=== PATIENT | male | born 1935 | race Two or more races ===

== ENCOUNTER 2017-10-25 19:55 | Inpatient (IN) | payer MEDICARE, MEDICAID ==
[~2017-10-25] VITALS: Ht 170.2 cm; Wt 90.7 kg
[~2017-10-25 19:55] MED LIST: ACTOS30 MG PO; AMARYL4 MG PO; CRESTOR10 MG PO; DIOVAN HCT 1601 EACH PO; GLUCOPHAGE500 MG PO; HYTRIN5 MG PO; JANUVIA100 MG PO; LOTREL 5-20 MG1 EACH PO; MOBIC7.5 MG PO; NEXIUM40 MG PO; PLAVIX75 MG PO
[2017-10-25 20:30] VITALS: BP 157/97
[2017-10-25] MEDS ORDERED: Acetaminophen 650 MG SUPP RECTAL ONE (20:45)
[2017-10-25 21:05] LABS: ANION GAP 9 mmol/L (5-15); BLOOD UREA NITROGEN 22 mg/dL (7-18); CALCIUM 9.5 MG/DL (8.5-10.1); CARBON DIOXIDE 27 MMOL/L (21-32); CHLORIDE 100 MMOL/L (98-107); CREATININE 1.4 MG/DL (0.55-1.30); POTASSIUM 4.7 MMOL/L (3.5-5.1); SODIUM 136 MMOL/L (136-145)
[2017-10-25 21:06] LABS: BASOPHILS % (AUTO) 0.9 % (0.0-2.0); EOSINOPHILS % (AUTO) 0.5 % (0.0-3.0); HEMATOCRIT 49.2 % (42.0-52.0); HEMOGLOBIN 16.6 G/DL (14.2-18.0); LYMPHOCYTES % (AUTO) 11.3 % (20.0-45.0); MEAN CORPUSCULAR VOLUME 90 FL (80-99); MONOCYTES % (AUTO) 6.2 % (1.0-10.0); NEUTROPHILS % (AUTO) 81.1 % (45.0-75.0); PLATELET COUNT 228 K/UL (150-450); RED BLOOD COUNT 5.45 M/UL (4.70-6.10); RED CELL DISTRIBUTION WIDTH 11.8 % (11.6-14.8)
[2017-10-25 21:19] LABS: ALANINE AMINOTRANSFERASE 23 U/L (12-78); ALBUMIN 3.7 G/DL (3.4-5.0); ALBUMIN/GLOBULIN RATIO 0.8 (1.0-2.7); ALKALINE PHOSPHATASE 78 U/L (46-116); ASPARTATE AMINO TRANSFERASE 24 U/L (15-37); BILIRUBIN,TOTAL 0.5 MG/DL (0.2-1.0); CKMB 0.6 NG/ML (0.0-3.6); CREATINE KINASE 98 U/L (26-308)
[2017-10-25 21:32] LABS: APPEARANCE,URINE CLEAR; BILIRUBIN, URINE NEGATIVE (NEGATIVE); COLOR,URINE PALE YELLOW; GLUCOSE, URINE (UA) NEGATIVE (NEGATIVE); KETONES,URINE NEGATIVE (NEGATIVE); LEUKOCYTE ESTERASE ,URINE 3+ (NEGATIVE); NITRITE,URINE NEGATIVE (NEGATIVE); PH,URINE 6 (4.5-8.0); PROTEIN,URINE 3+ (NEGATIVE); UROBILINOGEN,URINE NORMAL MG/DL (0.0-1.0)
[2017-10-25] MEDS ORDERED: Metoprolol 5mg/5ml Inj IVP ONE (22:15)
[2017-10-25] MEDS ORDERED: cefTRIAXone 1 GM in NS 55 ML IVPB ONE (22:15)
[2017-10-25] MEDS ORDERED: Azithromycin 500 MG in NS 275 ML IV ONE (22:15)
--- NOTE | 2017-10-25 22:19 | Emergency Room Report ---
History of Present Illness General Chief Complaint: Altered Level of Consciousness Source: Family Member, EMS Present Illness HPI 82-year-old male presents ED for evaluation. Patient brought in by family. Patient had fever 1 day. Tachycardic. History of A. fib. Patient has dementia and is unable to provide any additional history at this time. Family at bedside states that patient has increased urinary frequency. No signs of distress upon arrival. No other aggravating relieving factors. 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, R-sided weakness Review of Systems All Other Systems: limited Physical Exam Vital Signs Date Time Temp Pulse Resp B/P (MAP) Pulse Ox O2 Delivery O2 Flow Rate FiO2 10/25/17 19:57 100.0 126 16 157/97 95 Room Air 100.0 Sp02 EP Interpretation: reviewed, normal General Appearance: no apparent distress, non-toxic, other - dementia Head: normocephalic ENT: normal ENT inspection Neck: normal inspection Respiratory: chest non-tender, lungs clear, normal breath sounds, speaking full sentences Cardiovascular #1: tachycardia Gastrointestinal: normal bowel sounds, non tender, soft, non-distended, no guarding, no rebound Rectal: deferred Genitourinary: no CVA tenderness Musculoskeletal: normal inspection Neurologic: other - dementia Psychiatric: other - dementia Skin: normal inspection Lymphatic: normal inspection Medical Decision Making Diagnostic Impression: Primary Impression: UTI (urinary tract infection) Qualified Codes: N39.0 - Urinary tract infection, site not specified Additional Impressions: Renal insufficiency Dementia Qualified Codes: F03.90 - Unspecified dementia without behavioral disturbance Atrial fibrillation with RVR ER Course Hospital Course 82-year-old M presents ED complaining of fever, tachycardia Differential diagnoses include: FL/unstable angina, contusion, muscle strain, PTX, rib fracture, pneumonia, Clinical course Patient placed on stretcher. on potline monitor which shows A. fib with RVR. lopressor given with cardioversion. After initial history and physical I ordered labs, EKG, chest x-ray labs reviewed- noted leukocytosis, hemoglobin/hematocrit ok, BUN/Cr elevated, trop negative, BNP elevated, UA + bacteria Chest x-ray- CHF/cardiomegaly EKG - afib with RVR no acute ischemic changes interpreted by me abx given. Case discussed with Dr. Jon and he agreed to accept the patient to his service for further care and support I. I feel this is a highly complex case requiring extensive working including EKG/Rhythm strip, Xray/CT/US, Blood/urine lab work, repeat exams while in ED, and administration of strong opiates/narcotics for pain control, admission to hospital or close patient follow up. Diagnosis - afib with RVR, fever, UTI, renal insufficiency, dementia admitted to telemetry in serious condition Labs Test 10/25/17 20:20 10/25/17 21:00 White Blood Count 17.0 K/UL (4.8-10.8) Red Blood Count 5.45 M/UL (4.70-6.10) Hemoglobin 16.6 G/DL (14.2-18.0) Hematocrit 49.2 % (42.0-52.0) Mean Corpuscular Volume 90 FL (80-99) Mean Corpuscular Hemoglobin 30.6 PG (27.0-31.0) Mean Corpuscular Hemoglobin Concent 33.8 G/DL (32.0-36.0) Red Cell Distribution Width 11.8 % (11.6-14.8) Platelet Count 228 K/UL (150-450) Mean Platelet Volume 6.9 FL (6.5-10.1) Neutrophils (%) (Auto) 81.1 % (45.0-75.0) Lymphocytes (%) (Auto) 11.3 % (20.0-45.0) Monocytes (%) (Auto) 6.2 % (1.0-10.0) Eosinophils (%) (Auto) 0.5 % (0.0-3.0) Basophils (%) (Auto) 0.9 % (0.0-2.0) Sodium Level 136 MMOL/L (136-145) Potassium Level 4.7 MMOL/L (3.5-5.1) Chloride Level 100 MMOL/L (98-107) Carbon Dioxide Level 27 MMOL/L (21-32) Anion Gap 9 mmol/L (5-15) Blood Urea Nitrogen 22 mg/dL (7-18) Creatinine 1.4 MG/DL (0.55-1.30) Estimat Glomerular Filtration Rate mL/min (>60) Glucose Level 217 MG/DL (74-106) Lactic Acid Level 1.90 mmol/L (0.4-2.0) Calcium Level 9.5 MG/DL (8.5-10.1) Total Bilirubin 0.5 MG/DL (0.2-1.0) Aspartate Amino Transf (AST/SGOT) 24 U/L (15-37) Alanine Aminotransferase (ALT/SGPT) 23 U/L (12-78) Alkaline Phosphatase 78 U/L (46-116) Total Creatine Kinase 98 U/L (26-308) Creatine Kinase MB 0.6 NG/ML (0.0-3.6) Creatine Kinase MB Relative Index 0.6 Troponin I 0.008 ng/mL (0.000-0.056) Pro-B-Type Natriuretic Peptide 1339 pg/mL (0-125) Total Protein 8.6 G/DL (6.4-8.2) Albumin 3.7 G/DL (3.4-5.0) Globulin 4.9 g/dL Albumin/Globulin Ratio 0.8 (1.0-2.7) Urine Color Pale yellow Urine Appearance Clear Urine pH 6 (4.5-8.0) Urine Specific [place] 1.005 (1.005-1.035) Urine Protein 3+ (NEGATIVE) Urine Glucose (UA) Negative (NEGATIVE) Urine Ketones Negative (NEGATIVE) Urine Occult Blood 3+ (NEGATIVE) Urine Nitrite Negative (NEGATIVE) Urine Bilirubin Negative (NEGATIVE) Urine Urobilinogen Normal MG/DL (0.0-1.0) Urine Leukocyte Esterase 3+ (NEGATIVE) Urine RBC 10-15 /HPF (0 - 0) Urine WBC 5-10 /HPF (0 - 0) Urine Squamous Epithelial Cells None /LPF (NONE/OCC) Urine Bacteria Few /HPF (NONE) EKG Diagnostic Results Rate: tachycardiac Rhythm: other - afib ST Segments: no acute changes ASA given to the pt in ED: No Rhythm Strip Diag. Results EP Interpretation: yes Rhythm: no PVC's, no ectopy Chest X-Ray Diagnostic Results Chest X-Ray Diagnostic Results : Chest X-Ray Ordered: Yes # of Views/Limited/Complete: 1 View Indication: Other - ams EP Interpretation: Yes Interpretation: no consolidation, no pneumothorax, other - cardiomegaly. pulmonary congestion Impression: Other - chf Electronically Signed by: Electronically signed by Yosi Srinivasan MD Last Vital Signs Date Time Temp Pulse Resp B/P (MAP) Pulse Ox O2 Delivery O2 Flow Rate FiO2 10/25/17 20:57 103.4 10/25/17 19:57 126 16 157/97 95 Room Air Status: improved Disposition: ADMITTED INPATIENT Condition: Serious Referrals: NON PHYSICIAN (PCP) Yosi Srinivasan MD Oct 25, 2017 22:19
[2017-10-25 23:19] VITALS: BP 109/69
[2017-10-26] VITALS (7 sets, daily range): BP systolic 104–163; BP diastolic 62–93
[2017-10-26] MEDS ORDERED: UNOBMED (01:43)
[2017-10-26 06:14] LABS: BASOPHILS % (AUTO) 0.7 % (0.0-2.0); EOSINOPHILS % (AUTO) 0.7 % (0.0-3.0); HEMATOCRIT 43.9 % (42.0-52.0); HEMOGLOBIN 15.1 G/DL (14.2-18.0); LYMPHOCYTES % (AUTO) 17.6 % (20.0-45.0); MEAN CORPUSCULAR VOLUME 92 FL (80-99); MONOCYTES % (AUTO) 9.1 % (1.0-10.0); NEUTROPHILS % (AUTO) 71.9 % (45.0-75.0); PLATELET COUNT 226 K/UL (150-450); RED BLOOD COUNT 4.75 M/UL (4.70-6.10); RED CELL DISTRIBUTION WIDTH 11.7 % (11.6-14.8); WHITE BLOOD COUNT 14.2 K/UL (4.8-10.8)
[2017-10-26] MEDS: NovoLOG Insulin Flexpen SUBQ SCH ×4 (06:30→21:32)
[2017-10-26] MEDS: metroNIDAZOLE 500mg tab ORAL SCH ×3 (06:35→21:31)
[2017-10-26 07:06] LABS: ALANINE AMINOTRANSFERASE 19 U/L (12-78); ALBUMIN/GLOBULIN RATIO 0.7 (1.0-2.7); ALKALINE PHOSPHATASE 57 U/L (46-116); ANION GAP 9 mmol/L (5-15); ASPARTATE AMINO TRANSFERASE 13 U/L (15-37); BILIRUBIN,TOTAL 0.4 MG/DL (0.2-1.0); BLOOD UREA NITROGEN 23 mg/dL (7-18); CALCIUM 8.5 MG/DL (8.5-10.1); CARBON DIOXIDE 26 MMOL/L (21-32); CHLORIDE 105 MMOL/L (98-107); CREATININE 1.3 MG/DL (0.55-1.30); POTASSIUM 3.7 MMOL/L (3.5-5.1); SODIUM 140 MMOL/L (136-145)
[2017-10-26] MEDS ORDERED: Xarelto 15mg tab ORAL SCH (09:00)
[2017-10-26] MEDS ORDERED: Metoprolol Succinate XL 50mg tab ORAL SCH (09:00)
[2017-10-26] MEDS: Metoprolol Tartrate 50mg tab ORAL SCH ×2 (09:17→21:31)
[2017-10-26] MEDS: cefTRIAXone 1 GM in D5W 55 ML IVPB SCH (09:18)
[2017-10-26] MEDS ORDERED: URECHOLINE50 MG ORAL (10:30)
[2017-10-26] MEDS ORDERED: ESCITALOPRAM OX20 MG ORAL (10:30)
[2017-10-26] MEDS ORDERED: COLACE100 MG ORAL (10:30)
[2017-10-26] MEDS ORDERED: TAMSULOSIN HCL0.4 MG ORAL (10:30)
[2017-10-26] MEDS ORDERED: XARELTO10 MG ORAL (10:30)
[2017-10-26] MEDS ORDERED: BYSTOLIC10 MG ORAL (10:30)
[2017-10-26] MEDS ORDERED: TRIBENZOR 40-11 EAC1 ORAL (10:30)
--- NOTE | 2017-10-26 11:43 | Diagnostic Imaging Report ---
Indication: Dyspnea Comparison: None A single view chest radiograph was obtained. Findings: There is enlargement of the cardiac silhouette with pulmonary vascular redistribution and prominence, hazy vessel margins and the suggestion of interstitial edema consistent with CHF. Bones are osteopenic. IMPRESSION: Suspected CHF/interstitial edema
[2017-10-26] MEDS: Docusate 250mg cap ORAL SCH (18:12)
[2017-10-26] MEDS: metFORMIN 500mg tab ORAL SCH (18:12)
[2017-10-26] MEDS: Bethanechol 25mg Tab ORAL SCH (18:14)
[2017-10-26] MEDS: Tamsulosin 0.4mg cap ORAL SCH (21:30)
--- NOTE | 2017-10-26 21:59 | Cardiology Progress Note ---
Assessment/Plan Assessment/Plan UTI with elevated WBC atrial flutter chronic vascular dementia continue abx stop IVF PT f/u labs Subjective Subjective the patient feels better, his oral intake is good no fever today urination is better Objective Last 24 Hour Vital Signs Date Time Temp Pulse Resp B/P (MAP) Pulse Ox O2 Delivery O2 Flow Rate FiO2 10/26/17 21:31 70 163/93 10/26/17 20:55 97.0 70 20 163/93 (116) 98 97.0 10/26/17 20:00 97.7 67 18 143/83 (103) 97 97.7 10/26/17 18:12 66 143/83 10/26/17 16:00 66 10/26/17 15:21 97.7 67 18 143/83 (103) 97 97.7 10/26/17 12:00 68 10/26/17 12:00 97.3 66 20 139/77 (97) 96 97.3 10/26/17 09:17 76 122/68 10/26/17 09:00 Room Air 10/26/17 08:00 68 10/26/17 08:00 97.5 76 20 122/68 (86) 98 97.5 10/26/17 07:01 Room Air 10/26/17 04:00 97.9 67 19 104/62 (76) 96 97.9 10/26/17 02:15 98.0 86 20 110/64 97 Room Air 208.4 10/26/17 02:15 98.0 86 20 110/64 97 Room Air 98.0 10/25/17 23:19 97.5 117 16 109/69 96 Room Air 97.5 10/25/17 22:22 117 112/69 General Appearance: no apparent distress EENT: PERRL/EOMI Neck: supple Rhythm: Afib Cardiovascular: tachycardia Respiratory/Chest: rhonchi - bilaterally Abdomen: hypoactive bowel sounds Extremities: trace edema Neurologic: other - right sided weakness Intake and Output 10/25/17 10/26/17 19:00 07:00 # Voids 2 Laboratory Tests Test 10/26/17 05:30 White Blood Count 14.2 K/UL (4.8-10.8) H Red Blood Count 4.75 M/UL (4.70-6.10) Hemoglobin 15.1 G/DL (14.2-18.0) Hematocrit 43.9 % (42.0-52.0) Mean Corpuscular Volume 92 FL (80-99) Mean Corpuscular Hemoglobin 31.9 PG (27.0-31.0) H Mean Corpuscular Hemoglobin Concent 34.5 G/DL (32.0-36.0) Red Cell Distribution Width 11.7 % (11.6-14.8) Platelet Count 226 K/UL (150-450) Mean Platelet Volume 7.3 FL (6.5-10.1) Neutrophils (%) (Auto) 71.9 % (45.0-75.0) Lymphocytes (%) (Auto) 17.6 % (20.0-45.0) L Monocytes (%) (Auto) 9.1 % (1.0-10.0) Eosinophils (%) (Auto) 0.7 % (0.0-3.0) Basophils (%) (Auto) 0.7 % (0.0-2.0) Sodium Level 140 MMOL/L (136-145) Potassium Level 3.7 MMOL/L (3.5-5.1) Chloride Level 105 MMOL/L (98-107) Carbon Dioxide Level 26 MMOL/L (21-32) Anion Gap 9 mmol/L (5-15) Blood Urea Nitrogen 23 mg/dL (7-18) H Creatinine 1.3 MG/DL (0.55-1.30) Estimat Glomerular Filtration Rate mL/min (>60) Glucose Level 87 MG/DL (74-106) # Calcium Level 8.5 MG/DL (8.5-10.1) Total Bilirubin 0.4 MG/DL (0.2-1.0) Aspartate Amino Transf (AST/SGOT) 13 U/L (15-37) L Alanine Aminotransferase (ALT/SGPT) 19 U/L (12-78) Alkaline Phosphatase 57 U/L (46-116) Total Protein 7.3 G/DL (6.4-8.2) Albumin 3.0 G/DL (3.4-5.0) L Globulin 4.3 g/dL Albumin/Globulin Ratio 0.7 (1.0-2.7) L Janine Jon MD Oct 26, 2017 21:59
[2017-10-26] MEDS ORDERED: Lidocaine 1% MPF 10mg/ml 5ml IM SCH (22:00)
--- NOTE | 2017-10-26 22:29 | Cardiology Progress Note ---
Assessment/Plan Assessment/Plan UTI with elevated WBC atrial flutter chronic vascular dementia continue abx stop IVF PT f/u labs Subjective Subjective [id number] Objective Last 24 Hour Vital Signs Date Time Temp Pulse Resp B/P (MAP) Pulse Ox O2 Delivery O2 Flow Rate FiO2 10/26/17 21:31 70 163/93 10/26/17 20:55 97.0 70 20 163/93 (116) 98 97.0 10/26/17 20:00 97.7 67 18 143/83 (103) 97 97.7 10/26/17 18:12 66 143/83 10/26/17 16:00 66 10/26/17 15:21 97.7 67 18 143/83 (103) 97 97.7 10/26/17 12:00 68 10/26/17 12:00 97.3 66 20 139/77 (97) 96 97.3 10/26/17 09:17 76 122/68 10/26/17 09:00 Room Air 10/26/17 08:00 68 10/26/17 08:00 97.5 76 20 122/68 (86) 98 97.5 10/26/17 07:01 Room Air 10/26/17 04:00 97.9 67 19 104/62 (76) 96 97.9 10/26/17 02:15 98.0 86 20 110/64 97 Room Air 208.4 10/26/17 02:15 98.0 86 20 110/64 97 Room Air 98.0 10/25/17 23:19 97.5 117 16 109/69 96 Room Air 97.5 Intake and Output 10/25/17 10/26/17 19:00 07:00 # Voids 2 Laboratory Tests Test 10/26/17 05:30 White Blood Count 14.2 K/UL (4.8-10.8) H Red Blood Count 4.75 M/UL (4.70-6.10) Hemoglobin 15.1 G/DL (14.2-18.0) Hematocrit 43.9 % (42.0-52.0) Mean Corpuscular Volume 92 FL (80-99) Mean Corpuscular Hemoglobin 31.9 PG (27.0-31.0) H Mean Corpuscular Hemoglobin Concent 34.5 G/DL (32.0-36.0) Red Cell Distribution Width 11.7 % (11.6-14.8) Platelet Count 226 K/UL (150-450) Mean Platelet Volume 7.3 FL (6.5-10.1) Neutrophils (%) (Auto) 71.9 % (45.0-75.0) Lymphocytes (%) (Auto) 17.6 % (20.0-45.0) L Monocytes (%) (Auto) 9.1 % (1.0-10.0) Eosinophils (%) (Auto) 0.7 % (0.0-3.0) Basophils (%) (Auto) 0.7 % (0.0-2.0) Sodium Level 140 MMOL/L (136-145) Potassium Level 3.7 MMOL/L (3.5-5.1) Chloride Level 105 MMOL/L (98-107) Carbon Dioxide Level 26 MMOL/L (21-32) Anion Gap 9 mmol/L (5-15) Blood Urea Nitrogen 23 mg/dL (7-18) H Creatinine 1.3 MG/DL (0.55-1.30) Estimat Glomerular Filtration Rate mL/min (>60) Glucose Level 87 MG/DL (74-106) # Calcium Level 8.5 MG/DL (8.5-10.1) Total Bilirubin 0.4 MG/DL (0.2-1.0) Aspartate Amino Transf (AST/SGOT) 13 U/L (15-37) L Alanine Aminotransferase (ALT/SGPT) 19 U/L (12-78) Alkaline Phosphatase 57 U/L (46-116) Total Protein 7.3 G/DL (6.4-8.2) Albumin 3.0 G/DL (3.4-5.0) L Globulin 4.3 g/dL Albumin/Globulin Ratio 0.7 (1.0-2.7) L Janine Jon MD Oct 26, 2017 22:29
[2017-10-27] VITALS: BP 129/65
--- NOTE | 2017-10-27 01:32 | History and Physical Report ---
DATE OF ADMISSION: 10/25/2017 IDENTIFYING DATA: The patient is an 82-year-old gentleman. REASON FOR ADMISSION: Urinary tract infection. HISTORY OF PRESENT ILLNESS: Taken from the patient's . The patient is unfortunately has vascular dementia due to his debilitating stroke. He suffered approximately a year ago. So, he lives at home with his who takes care of him and yesterday he became altered and then he was complaining of generalized body aches. So, he was brought to the emergency department where he was found to be febrile and he had some mild chills. He also has frequent urination. He did have history of urinary tract infection in the past. PAST MEDICAL HISTORY: In addition to debilitating stroke significant for diabetes, hypertension, atrial fibrillation, benign prostatic hypertrophy, gastroparesis, and arthritis. SURGICAL HISTORY: He underwent in the past cholecystectomy and he also had intervention during his stroke with intracerebral thrombolytics. ALLERGIES: Not reported. MEDICATIONS: His home medications include Xarelto, Januvia, Bystolic, Exforge 25, Crestor, Flomax, , and escitalopram. HABITS: Severe remote history of drinking and smoking. Social dependent, lives with his . REVIEW OF SYSTEMS: The patient is unstable on his gait. He denies any chest pain or shortness of breath today. No cough. No vomiting. No diarrhea or melena. No abdominal pain. He has right groin pain, which is chronic. PHYSICAL EXAMINATION: GENERAL: This is elderly gentleman. He was in the emergency department and so he was resting in bed. VITAL SIGNS: His temperature was 103.4 degrees, his heart rate was 130, his blood pressure was 160/90, and his oxygen saturation 95%. HEENT: 0He has mild right-sided facial droop. His neck was supple. PERRLA. EOMI. NECK: Neck veins are not distended. His carotid upstroke was brisk. LUNGS: Clear to auscultation bilaterally. HEART: Irregular and rapid. ABDOMEN: Soft, slightly distended. Bowel sounds are present. No rebound. EXTREMITIES: Lower extremity trace edema. NEUROLOGICAL: He has left-sided weakness, especially the arm. LABORATORY AND DIAGNOSTIC DATA: His ECG showed atrial fibrillation with incomplete left bundle-branch block. His laboratory data revealed a white count of 17,000, hemoglobin 16.6, and platelets 228. Chemistry was unremarkable with a BUN 23 and albumin 3. Chest x-ray did not show any infiltrates and his urinalysis was positive for wbc's and rbc's, leukocyte esterase, occult blood and urine protein. IMPRESSION AND RECOMMENDATION: The patient is suffering from urinary tract infection. He is a diabetic, so increased risk for urosepsis. He is going to be admitted for monitoring IV hydration, control his heart rate, control his temperature and intravenous antibiotics administration. Janine Jon M.D. DR: MARYAM JOB#: [id number] CC:
[2017-10-27 04:00] VITALS: BP 139/88
[2017-10-27] MEDS: sitaGLIPtin 50mg tab ORAL SCH (07:15)
[2017-10-27] MEDS: metroNIDAZOLE 500mg tab ORAL SCH ×3 (07:15→22:05)
[2017-10-27] MEDS: metFORMIN 500mg tab ORAL SCH ×3 (07:15→16:45)
[2017-10-27] MEDS: NovoLOG Insulin Flexpen SUBQ SCH ×4 (07:16→22:15)
[2017-10-27 07:54] LABS: BASOPHILS % (AUTO) 0.7 % (0.0-2.0); EOSINOPHILS % (AUTO) 1.7 % (0.0-3.0); HEMATOCRIT 46.3 % (42.0-52.0); HEMOGLOBIN 15.8 G/DL (14.2-18.0); LYMPHOCYTES % (AUTO) 19.4 % (20.0-45.0); MEAN CORPUSCULAR VOLUME 91 FL (80-99); MONOCYTES % (AUTO) 8.2 % (1.0-10.0); NEUTROPHILS % (AUTO) 69.9 % (45.0-75.0); PLATELET COUNT 214 K/UL (150-450); RED BLOOD COUNT 5.09 M/UL (4.70-6.10); RED CELL DISTRIBUTION WIDTH 11.4 % (11.6-14.8); WHITE BLOOD COUNT 10.6 K/UL (4.8-10.8)
[2017-10-27 08:00] VITALS: BP 139/103
[2017-10-27 08:26] LABS: ANION GAP 7 mmol/L (5-15); BLOOD UREA NITROGEN 17 mg/dL (7-18); CALCIUM 8.9 MG/DL (8.5-10.1); CARBON DIOXIDE 28 MMOL/L (21-32); CHLORIDE 104 MMOL/L (98-107); CREATININE 1.1 MG/DL (0.55-1.30); POTASSIUM 3.7 MMOL/L (3.5-5.1); SODIUM 139 MMOL/L (136-145)
[2017-10-27] MEDS: Docusate 250mg cap ORAL SCH (09:28)
[2017-10-27] MEDS: Metoprolol Tartrate 50mg tab ORAL SCH ×2 (09:28→22:06)
[2017-10-27] MEDS: Xarelto 10mg tab ORAL SCH (09:28)
[2017-10-27] MEDS: cefTRIAXone 1 GM in D5W 55 ML IVPB SCH (09:28)
[2017-10-27] MEDS: Bethanechol 25mg Tab ORAL SCH ×2 (09:29→17:13)
[2017-10-27 12:12] VITALS: BP 138/86
[2017-10-27 16:00] VITALS: BP 124/75
[2017-10-27 20:00] VITALS: BP 144/81
[2017-10-27] MEDS: Tamsulosin 0.4mg cap ORAL SCH (22:06)
--- NOTE | 2017-10-27 22:41 | Cardiology Progress Note ---
Assessment/Plan Assessment/Plan UTI with elevated WBC atrial flutter chronic vascular dementia continue abx stop IVF PT f/u labs Subjective Subjective the patient is doing better, no shivering, no fever, is eating well family at the bedside walked a little bit Objective Last 24 Hour Vital Signs Date Time Temp Pulse Resp B/P (MAP) Pulse Ox O2 Delivery O2 Flow Rate FiO2 10/27/17 22:06 66 144/81 10/27/17 16:00 97.8 77 20 124/75 (91) 97 97.8 77 10/27/17 16:00 93 10/27/17 12:12 97.5 78 22 138/86 (103) 94 97.5 10/27/17 12:00 70 10/27/17 09:29 95 139/103 10/27/17 09:28 95 139/103 10/27/17 09:00 Room Air 10/27/17 08:00 77 10/27/17 08:00 97.9 95 22 139/103 (115) 96 97.9 10/27/17 04:00 68 10/27/17 04:00 98.2 67 20 139/88 (105) 96 98.2 10/27/17 00:00 98.2 83 20 129/65 (86) 96 98.2 10/27/17 00:00 72 General Appearance: no apparent distress, other - confused EENT: PERRL/EOMI Neck: no JVD Rhythm: Afib Cardiovascular: tachycardia Respiratory/Chest: lungs clear Abdomen: soft Extremities: trace edema Intake and Output 10/26/17 10/27/17 19:00 07:00 Intake Total 1065 ml 250 ml Balance 1065 ml 250 ml Intake Oral 360 ml IV Total 705 ml Other 250 ml # Voids 2 4 # Bowel Movements 1 Laboratory Tests Test 10/27/17 07:00 White Blood Count 10.6 K/UL (4.8-10.8) Red Blood Count 5.09 M/UL (4.70-6.10) Hemoglobin 15.8 G/DL (14.2-18.0) Hematocrit 46.3 % (42.0-52.0) Mean Corpuscular Volume 91 FL (80-99) Mean Corpuscular Hemoglobin 31.1 PG (27.0-31.0) H Mean Corpuscular Hemoglobin Concent 34.2 G/DL (32.0-36.0) Red Cell Distribution Width 11.4 % (11.6-14.8) L Platelet Count 214 K/UL (150-450) Mean Platelet Volume 7.1 FL (6.5-10.1) Neutrophils (%) (Auto) 69.9 % (45.0-75.0) Lymphocytes (%) (Auto) 19.4 % (20.0-45.0) L Monocytes (%) (Auto) 8.2 % (1.0-10.0) Eosinophils (%) (Auto) 1.7 % (0.0-3.0) Basophils (%) (Auto) 0.7 % (0.0-2.0) Sodium Level 139 MMOL/L (136-145) Potassium Level 3.7 MMOL/L (3.5-5.1) Chloride Level 104 MMOL/L (98-107) Carbon Dioxide Level 28 MMOL/L (21-32) Anion Gap 7 mmol/L (5-15) Blood Urea Nitrogen 17 mg/dL (7-18) Creatinine 1.1 MG/DL (0.55-1.30) Estimat Glomerular Filtration Rate mL/min (>60) Glucose Level 124 MG/DL (74-106) H Calcium Level 8.9 MG/DL (8.5-10.1) Microbiology Date/Time Source Procedure Growth Status 10/25/17 20:20 Blood Blood Culture - Preliminary NO GROWTH AFTER 24 HOURS Resulted 10/25/17 20:05 Blood Blood Culture - Preliminary NO GROWTH AFTER 24 HOURS Resulted Janine Jon MD Oct 27, 2017 22:41
[2017-10-28] VITALS: BP 135/79
[2017-10-28 04:15] VITALS: BP 158/73
[2017-10-28] MEDS: sitaGLIPtin 50mg tab ORAL SCH (05:59)
[2017-10-28] MEDS: metroNIDAZOLE 500mg tab ORAL SCH ×3 (05:59→22:11)
[2017-10-28] MEDS: metFORMIN 500mg tab ORAL SCH ×3 (05:59→16:30)
[2017-10-28] MEDS: NovoLOG Insulin Flexpen SUBQ SCH ×4 (06:01→20:46)
[2017-10-28 08:00] VITALS: BP 135/76
[2017-10-28] MEDS: Xarelto 10mg tab ORAL SCH (09:09)
[2017-10-28] MEDS: Docusate 250mg cap ORAL SCH (09:09)
[2017-10-28] MEDS: cefTRIAXone 1 GM in D5W 55 ML IVPB SCH (09:10)
[2017-10-28] MEDS: Metoprolol Tartrate 50mg tab ORAL SCH ×2 (09:12→20:44)
[2017-10-28] MEDS: Bethanechol 25mg Tab ORAL SCH ×2 (09:16→17:53)
--- NOTE | 2017-10-28 11:24 | Cardiology Progress Note ---
Assessment/Plan Assessment/Plan UTI with elevated WBC atrial flutter chronic vascular dementi seems to be doign ok on iv abx dc pl;an for monday per dr sarkar tele atrial flutter hemodynamically stable Subjective Cardiovascular: Reports: no symptoms Respiratory: Reports: no symptoms Gastrointestinal/Abdominal: Reports: no symptoms Genitourinary: Reports: no symptoms Objective Last 24 Hour Vital Signs Date Time Temp Pulse Resp B/P (MAP) Pulse Ox O2 Delivery O2 Flow Rate FiO2 10/28/17 09:17 92 135/76 10/28/17 09:12 92 135/76 10/28/17 08:00 97.8 92 17 135/76 (95) 94 97.8 10/28/17 08:00 67 10/28/17 04:39 64 10/28/17 04:15 97.5 66 21 158/73 (101) 96 97.5 10/28/17 00:00 97.7 67 20 135/79 (97) 95 97.7 10/28/17 00:00 67 10/27/17 22:06 66 144/81 10/27/17 21:00 Room Air 10/27/17 20:00 68 10/27/17 20:00 97.7 66 19 144/81 (102) 97 97.7 66 10/27/17 16:00 97.8 77 20 124/75 (91) 97 97.8 77 10/27/17 16:00 93 10/27/17 12:12 97.5 78 22 138/86 (103) 94 97.5 10/27/17 12:00 70 General Appearance: no apparent distress, alert Cardiovascular: irregularly irregular Respiratory/Chest: lungs clear Abdomen: normal bowel sounds, non tender, soft Extremities: no swelling Intake and Output 10/27/17 10/28/17 19:00 07:00 Intake Total 55 ml 470 ml Balance 55 ml 470 ml Intake Oral 320 ml IV Total 55 ml 150 ml # Voids 3 3 Microbiology Date/Time Source Procedure Growth Status 10/25/17 20:20 Blood Blood Culture - Preliminary NO GROWTH AFTER 48 HOURS Resulted 10/25/17 20:05 Blood Blood Culture - Preliminary NO GROWTH AFTER 48 HOURS Resulted Arron Lyles MD Oct 28, 2017 11:24
[2017-10-28 12:00] VITALS: BP 139/77
--- NOTE | 2017-10-28 14:35 | Physician Query ---
--------- THIS DOCUMENT IS A PERMANENT PART OF THE MEDICAL RECORD --------- PLEASE COMPLETE THE DOCUMENT BEFORE SIGNING Dear Dr. Jon Date: 2017 Marketing Representative/CDS Name: Dara hidalgo Marketing Representative/CDS Phone No.:[phone] Exercise your independent professional judgment when responding to query. Question asked do not imply a particular answer is desired/expected Clinical Documentation States: Patient is admitted with UTI. "Urosepsis" documented in Assessment. Clinical Findings Show: WBC: 17.0, Temperature: 103.4, HR: 126 Antibiotics : Ceftriaxone Please clarify the diagnosis for above findings: [ ] Sepsis [ ] Sepsis with organ dysfunction [ ] SIRS [ ] SIRS with organ dysfunction [ ] Septic Shock [ ] Other: [ ] Clinically Undeterminable Present on admission? [] Yes [] No [] Clinically undeterminable Criteria for Sepsis* Sepsis: Presence of 1 or more criteria in this row.. Positive cultures (but not required) or WBCs present in otherwise sterile fluid: blood, urine, sputum, CSF , etc.? Prescribed anti-infective therapy: antibiotic, antifungal, and other? Documentation of pneumonia: positive x-ray or clinical presentation? Perforated viscus: perforation of a hollow organ, e.g. bowel? SIRS: Presence of > 2 criteria in this row Temperature: > 100.4 F. or < 96.8 F. Heart rate: > 90 bpm Respiratory rate: > 20/min. WBC count: > 12,000/mm2 < 4,000/mm2 > 10% bands MTDD
[2017-10-28 16:00] VITALS: BP 138/81
[2017-10-28 20:00] VITALS: BP 116/50
[2017-10-28] MEDS: Tamsulosin 0.4mg cap ORAL SCH (20:44)
[2017-10-29] VITALS (7 sets, daily range): BP systolic 136–155; BP diastolic 74–99
[2017-10-29] MEDS: metroNIDAZOLE 500mg tab ORAL SCH ×3 (05:52→21:02)
[2017-10-29] MEDS: sitaGLIPtin 50mg tab ORAL SCH (05:52)
[2017-10-29] MEDS: metFORMIN 500mg tab ORAL SCH ×3 (05:52→17:10)
[2017-10-29] MEDS: NovoLOG Insulin Flexpen SUBQ SCH ×4 (05:53→20:51)
[2017-10-29] MEDS: Xarelto 10mg tab ORAL SCH (08:18)
[2017-10-29] MEDS: Docusate 250mg cap ORAL SCH (08:18)
[2017-10-29] MEDS: cefTRIAXone 1 GM in D5W 55 ML IVPB SCH (08:18)
[2017-10-29] MEDS: Bethanechol 25mg Tab ORAL SCH ×2 (08:18→17:09)
[2017-10-29] MEDS: Metoprolol Tartrate 50mg tab ORAL SCH ×2 (08:19→20:49)
--- NOTE | 2017-10-29 13:41 | Cardiology Progress Note ---
Assessment/Plan Assessment/Plan UTI with elevated WBC atrial flutter chronic vascular dementi seems to be doign ok on iv abx dc plan for monday per dr sarkar tele atrial flutter hemodynamically stable Subjective Cardiovascular: Denies: chest pain, lightheadedness Respiratory: Denies: shortness of breath Gastrointestinal/Abdominal: Denies: abdominal pain Genitourinary: Denies: burning Subjective walked in halls Objective Last 24 Hour Vital Signs Date Time Temp Pulse Resp B/P (MAP) Pulse Ox O2 Delivery O2 Flow Rate FiO2 10/29/17 12:00 65 10/29/17 12:00 97.7 69 20 149/87 (107) 96 97.7 10/29/17 09:00 Room Air 10/29/17 08:19 97 136/100 10/29/17 08:19 97 136/100 10/29/17 08:00 98.2 97 20 136/99 (111) 95 98.2 10/29/17 08:00 88 10/29/17 04:00 97.3 67 20 154/98 (116) 94 97.3 10/29/17 04:00 67 10/29/17 00:00 98.0 69 22 144/92 (109) 93 98.0 10/28/17 23:30 70 10/28/17 21:00 Room Air 10/28/17 20:44 85 146/99 10/28/17 20:00 97.7 86 20 116/50 (72) 97 97.7 10/28/17 19:02 82 10/28/17 16:00 97.6 96 22 138/81 (100) 97 97.6 10/28/17 16:00 70 General Appearance: no apparent distress, alert Neck: supple Cardiovascular: irregularly irregular Respiratory/Chest: lungs clear Abdomen: normal bowel sounds, non tender, soft Extremities: no swelling Intake and Output 10/28/17 10/29/17 19:00 07:00 Intake Total 605 ml Balance 605 ml IV Total 605 ml # Voids 3 5 # Bowel Movements 2 Arron Lyles MD Oct 29, 2017 13:41
[2017-10-29] MEDS: Tamsulosin 0.4mg cap ORAL SCH (20:48)
[2017-10-30] VITALS: BP 134/86
[2017-10-30 04:00] VITALS: BP 142/81
[2017-10-30] MEDS: sitaGLIPtin 50mg tab ORAL SCH (06:18)
[2017-10-30] MEDS: metFORMIN 500mg tab ORAL SCH (06:18)
[2017-10-30] MEDS: metroNIDAZOLE 500mg tab ORAL SCH (06:19)
[2017-10-30] MEDS: NovoLOG Insulin Flexpen SUBQ SCH (06:21)
[2017-10-30 08:00] VITALS: BP 165/90
[2017-10-30] MEDS: Bethanechol 25mg Tab ORAL SCH (08:35)
[2017-10-30 08:36] VITALS: BP 175/90
[2017-10-30] MEDS: Metoprolol Tartrate 50mg tab ORAL SCH (08:36)
[2017-10-30] MEDS: Docusate 250mg cap ORAL SCH (08:36)
--- NOTE | 2017-10-30 08:36 | Cardiology Progress Note ---
Assessment/Plan Assessment/Plan will follow labs today and oral intake, will decide about discharge after that Subjective Subjective complaining on nausea, does not want to eat, his is not here yet Objective Last 24 Hour Vital Signs Date Time Temp Pulse Resp B/P (MAP) Pulse Ox O2 Delivery O2 Flow Rate FiO2 10/30/17 04:00 77 10/30/17 04:00 97.6 88 22 142/81 (101) 95 97.6 10/30/17 00:00 67 10/30/17 00:00 98.4 68 20 134/86 (102) 96 98.4 10/29/17 20:49 84 155/89 10/29/17 20:20 Room Air 10/29/17 20:00 97.6 84 18 155/89 (111) 97 97.6 10/29/17 20:00 78 10/29/17 17:54 144/74 (97) 10/29/17 16:00 67 10/29/17 15:56 98.1 101 22 152/96 (114) 98 98.1 10/29/17 12:00 65 10/29/17 12:00 97.7 69 20 149/87 (107) 96 97.7 10/29/17 09:00 Room Air General Appearance: no apparent distress, lethargic EENT: PERRL/EOMI Neck: normal alignment Rhythm: Afib Cardiovascular: tachycardia Respiratory/Chest: decreased breath sounds Abdomen: non tender Extremities: moderate edema Neurologic: abnormal gait Intake and Output 10/29/17 10/30/17 19:00 07:00 Intake Total 800 ml 100 ml Balance 800 ml 100 ml Intake Oral 800 ml 100 ml # Voids 4 3 Janine Jon MD Oct 30, 2017 08:36
[2017-10-30] MEDS: Xarelto 10mg tab ORAL SCH (08:37)
[2017-10-30] MEDS: cefTRIAXone 1 GM in D5W 55 ML IVPB SCH (08:39)
[2017-10-30 09:46] LABS: BASOPHILS % (AUTO) 0.9 % (0.0-2.0); EOSINOPHILS % (AUTO) 2.6 % (0.0-3.0); HEMATOCRIT 45.4 % (42.0-52.0); HEMOGLOBIN 15.9 G/DL (14.2-18.0); MEAN CORPUSCULAR VOLUME 92 FL (80-99); MONOCYTES % (AUTO) 8.7 % (1.0-10.0); NEUTROPHILS % (AUTO) 66.8 % (45.0-75.0); PLATELET COUNT 255 K/UL (150-450); RED BLOOD COUNT 4.93 M/UL (4.70-6.10); RED CELL DISTRIBUTION WIDTH 11.9 % (11.6-14.8); WHITE BLOOD COUNT 8.7 K/UL (4.8-10.8)
[2017-10-30 10:19] LABS: ANION GAP 9 mmol/L (5-15); BLOOD UREA NITROGEN 12 mg/dL (7-18); CALCIUM 9.1 MG/DL (8.5-10.1); CARBON DIOXIDE 26 MMOL/L (21-32); CHLORIDE 104 MMOL/L (98-107); CREATININE 1.1 MG/DL (0.55-1.30); SODIUM 139 MMOL/L (136-145)
--- NOTE | 2017-11-01 12:54 | Discharge Summary ---
Discharge Summary Discharge Summary _ DATE OF ADMISSION: 10/25/2017 DATE OF DISCHARGE: 10/30/2017 REASON FOR ADMISSION: 82 years old male with past medical history of diabetes mellitus, hypertension, atrial flutter, CVA, vascular dementia, was brought to w emergency department for evaluation by his family. Patient had fever for 1 day. Per family report, patient had increased urinary frequency. Patient by himself was unable to provide any information due to dementia. Vital signs reveal fever-103.4, tachycardia-126. Laboratory workup revealed significant leukocytosis WBC-17.0 Urinalysis with evidence of bacteria EKG revealed atrial fibrillation with rapid ventricular response no acute ischemic changes. Chest x-ray revealed CHF with cardiomegaly. Troponin negative pro BNP -1339. Elevated creatinine -1.4 Patient admitted with leukocytosis, fever, urinary tract infection, probable sepsis, atrial fibrillation with rapid ventricular response, vascular dementia , renal insufficiency, diabetes mellitus HOSPITAL COURSE: Patient admitted to telemetry floor. Rate controlled with beta cristhian. Patient was on anticoagulation with Xarelto. Rate stabilized, patient with history of chronic atrial flutter. Hemoglobin and hematocrit remained stable. Blood pressure was managed with calcium channel cristhian and beta cristhian , and further optimized as per attending physician. Statin was continued. Blood sugar was managed with Januvia, metformin and sliding scale of insulin as needed. Renal parameters and electrolytes were closely monitored , electrolytes corrected as needed, and nephrotoxins were avoided. Renal insufficiency on admission with creatinine of 1.4 resolved, prior to discharge creatinine- 1.1. Patient was on empiric antibiotic for urinary tract infection .. Blood culture were negative. Patient was working with physical therapy. P Fall precautions were maintained. Supportive care provided. Pain management addressed as needed. GI prophylaxis provided . Patient clinically improved and was stable for discharge home for continuation of care. FINAL DIAGNOSES: Atrial fibrillation with rapid ventricular response, resolved Probably sepsis Urinary tract infection Chronic atrial flutter Renal insufficiency Diabetes mellitus Vascular dementia DISCHARGE MEDICATIONS: See Medication Reconciliation list. DISCHARGE INSTRUCTIONS: Patient discharged home; follow-up with primary care provider in one week I have been assigned to dictate discharge summary for this account. I was not involved in the patient's management. Racquel Moore NP Nov 01, 2017 12:54
== END 2017-10-30 12:09 | disposition home or self-care (01) | DRG 690 ==
LOC: EDBD 19:55 → EMR 21:10 → 2E 21:18 → EDBEDREQSVC 22:08 → EDBEDREQ 22:08 → 2E 10-26 02:58
DX: N39.0 Urinary tract infection, site not specified (principal); I48.92 Unspecified atrial flutter; E11.9 Type 2 diabetes mellitus without complications; I69.319 Unspecified symptoms and signs involving cognitive functions following cerebral infarction; F01.50 Vascular dementia, unspecified severity, without behavioral disturbance, psychotic disturbance, mood disturbance, and anxiety; I10 Essential (primary) hypertension; N40.0 Benign prostatic hyperplasia without lower urinary tract symptoms; Z79.01 Long term (current) use of anticoagulants; I44.7 Left bundle-branch block, unspecified
CPT/HCPCS: 36415; 71045; 80048; 80053; 81003; 82550; 82553; 82962; 83605; 83880; 84484; 85025; 87040; 93005; 99283; J1815